=== PATIENT | female | born 1950 | race Two or more races ===

== ENCOUNTER 2025-02-06 13:21 | Inpatient (IN) | payer MEDICARE, MEDICAID ==
[~2025-02-06] VITALS: Ht 157.5 cm; Wt 72.1 kg
--- NOTE | 2025-02-06 13:51 | ECG ---
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
[2025-02-06] MEDS: FUROSEMIDE 40 MG/4 ML VIAL IV ONE (14:27)
--- NOTE | 2025-02-06 14:29 | ED.PDOC ---
History of Present Illness HPI Comments 75F presents to the ER w/ son and prior MHx of HTN, DM and the c/c of SOB. Son reports on the pt complaining of SOB yesterday and brought the pt in today due from the struggling to breathe while sleeping. Pt does have Bilateral LE Edema. Pt is taking blood thinners. Denies any other symptoms at this time. Denies chills, fever, N/V/D, CP. Denies any other associated symptom's, modifiers, or recent injuries or sick contact at this time. Chief Complaint: Shortness of Breath Time Seen by MD: 14:25 Reviewed Notes: Nurses Notes, Medications, Allergies Allergies: Coded Allergies: NO KNOWN ALLERGIES (Unverified , 02/06/25) Information Source: Patient, Relative (Child) Mode of Arrival: Ambulatory Severity: Moderate Timing: Hours Duration: Since onset, Hours Prehospital treatment: None Past Medical History PAST MEDICAL HISTORY: DM, HTN Surgical History: Denies all surgeries Family History Family History: Reviewed,noncontributory to illness, Unknown Social History Smoker: Non-Smoker Alcohol: Denies ETOH Use Drugs: Denies Drug Use Lives In: Home Constitutional: denies: chills, diaphoresis, fatigue, fever, malaise, sweats, weakness, others EENTM: denies: blurred vision, double vision, ear bleeding, ear discharge, ear drainage, ear pain, ear ringing, eye pain, eye redness, hearing loss, mouth pain, mouth swelling, nasal discharge, nose bleeding, nose congestion, nose pain, photophobia, tearing, throat pain, throat swelling, voice changes, others Respiratory: reports: shortness of breath; denies: cough, hemoptysis, orthopnea, SOB at rest, SOB with excertion, stridor, wheezing, others Cardiovascular: reports: edema (bilat LE); denies: chest pain, dizzy spells, diaphoresis, Dyspnea on exertion, irregular heart beat, left arm pain, lightheadedness, palpitations, PND, syncope, others Gastrointestinal: denies: abdomen distended, abdominal pain, blood streaked bowels, constipated, diarrhea, dysphagia, difficulty swallowing, hematemesis, melena, nausea, poor appetite, poor fluid intake, rectal bleeding, rectal pain, vomiting, others Genitourinary: denies: abnormal vagina bleeding, burning, dyspareunia, dysuria, flank pain, frequency, hematuria, incontinence, pain, , vagina discharge, urgency, others Neurological: denies: dizziness, fainting, headache, left sided numbness, left sided weakness, numbness, paresthesia, pre-existing deficit, right sided numbn ess, right sided weakness, seizure, speech problems, tingling, tremors, weakness, others Musculoskeletal: denies: back pain, gout, joint pain, joint swelling, muscle pain, muscle stiffness, neck pain, others Integumetry: denies: bruises, change in color, change in hair/nails, dryness, laceration, lesions, lumps, rash, wounds, others Allergic/Immunocompromised: denies: Difficulty Healing, Frequent Infections, Hives, Itching, others Hematologic/Lymphatic: denies: anemia, blood clots, easy bleeding, easy bruising, swollen glands, others Endocrine: denies: excessive hunger, excessive sweating, excessive thirst, excessive urination, flushing, intolerance to cold, intolerance to heat, unexplained weight gain, unexplained weight loss, others Psychiatric: denies: anxiety, bipolar disorder, depression, hopeless, panic disorder, schizophrenia, sleepless, suicidal, others All Other Systems: Reviewed and Negative Physical Exam General Appearance: Moderate Distress, Normal HEENT: Normal ENT Inspection, Pharynx Normal, TMs Normal Neck: Full Range of Motion, Non-Tender, Normal, Normal Inspection Respiratory: Chest Non-Tender, No Accessory Muscle Use, Respiratory Distress, Other (Coarse breath sound) Cardiovascular: No Edema, No JVD, No Murmur, No Gallop, Normal Peripheral Pulses, Regular Rate/Rhythm Breast Exam: Deferred Gastrointestinal: No Organomegaly, Non Tender, No Pulsatile Mass, Normal Bowel Sounds, Soft Genitalia: Deferred Pelvic: Deferred Rectal: Deferred Extremities: No calf tenderness, Normal capillary refill, Normal inspection, Normal range of motion, Non-tender, No pedal edema Musculoskeletal : Apperance: Normal 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 Was a procedure done?: No EKG EKG : Pulse Rate (adult): 81 [place]: Normal Cardiac Rhythm: NSR Block: None Hypertrophy: None ST: Normal Differential Dx Considerations may include: CHF Electrolyte imbalance X-Ray, Labs, Meds, VS Vital Signs Date Time Temp Pulse Resp B/P (MAP) Pulse Ox O2 Delivery O2 Flow Rate FiO2 02/06/25 15:03 81 18 158/70 (99) 94 02/06/25 14:38 Nasal Cannula* 3 32 02/06/25 14:29 81 02/06/25 14:27 140/69 02/06/25 13:38 81 02/06/25 13:23 97.1 82 22 151/78 85 97.1 Lab Test 02/06/25 15:39 02/06/25 14:09 Range/Units Troponin I High Sensitivity 5 5 </=34 ng/L White Blood Count 8.2 4.4-10.8 10^3/uL Red Blood Count 3.57 L 4.0-5.20 10^6/uL Hemoglobin 9.4 L 12.2-16.2 g/dL Hematocrit 29.8 L 36.0-46.0 % Mean Corpuscular Volume 83.5 80.0-100.0 fL Mean Corpuscular Hemoglobin 26.4 L 28.0-32.0 pg Mean Corpuscular Hemoglobin Concent 31.6 L 32.0-36.0 g/dL Red Cell Distribution Width 17.9 H 11.8-14.3 % Platelet Count 395 140-450 10^3/uL Mean Platelet Volume 6.9 6.9-10.8 fL Neutrophils (%) (Auto) 67.5 37.0-80.0 % Lymphocytes (%) (Auto) 20.4 10.0-50.0 % Monocytes (%) (Auto) 7.6 0.0-12.0 % Eosinophils (%) (Auto) 3.4 0.0-7.0 % Basophils (%) (Auto) 1.1 0.0-2.0 % Neutrophils # (Auto) 5.6 1.6-8.6 10 ^3/uL Lymphocytes # (Auto) 1.7 0.4-5.4 10 ^3/uL Monocytes # (Auto) 0.6 0-1.3 10 ^3/uL Eosinophils # (Auto) 0.3 0-0.8 10 ^3/uL Basophils # (Auto) 0.1 0-0.2 10 ^3/uL Nucleated Red Blood Cells 0.1 % Sodium Level 141 136-145 mmol/L Potassium Level 4.8 3.5-5.1 mmol/L Chloride Level 110 H 98-107 mmol/L Carbon Dioxide Level 22 20-31 mmol/L Anion Gap 9 5-15 Blood Urea Nitrogen 23 9-23 mg/dL Creatinine 1.31 H 0.550-1.02 mg/dL Glomerular Filtration Rate Calc 42 >90 mL/min BUN/Creatinine Ratio 17.6 10.0-20.0 Serum Glucose 113 H 74-106 mg/dL Calcium Level 8.6 L 8.7-10.4 mg/dL Total Bilirubin 0.6 0.2-1.0 mg/dL Aspartate Amino Transferase (AST) 21 13-40 U/L Alanine Aminotransferase (ALT) 18 7-40 U/L Alkaline Phosphatase 140 H 46-116 U/L B-Type Natriuretic Peptide 442.26 0-100 pg/mL Total Protein 7.6 5.7-8.2 g/dL Albumin 4.0 3.2-4.8 g/dL Current Medications Medications (Trade) Dose Ordered Sig/Scarlet Route Start Time Stop Time Status Last Admin Furosemide (Lasix Injection) 40 mg ONCE ONCE IV 02/06/25 14:00 02/06/25 14:01 DC 02/06/25 14:27 Patient alert. Placed on oxygen. Complaining of shortness a breath. Answering questions. BNP elevated. Mild swelling of the extremities. Was given Lasix. Explained to the patient. Continue monitoring. Time of 1ST Reevaluation: 14:55 Reevaluation 1ST: Unchanged Patient Education/Counseling: Diagnosis, Treatment, Prognosis Family Education/Counseling: No Family Present SEPSIS Sepsis Screen Date sepsis recognized/suspect: Feb 06, 2025 Time Sepsis recognized/suspect: 1325 Recent Procedure: No On Antibiotic Therapy: No Respiratory Rate >20: No Heart Rate >90: No Temp<36 C (96.8 F) or >38.3 C: No SBP <90 or MAP <65 mmHG: No New Acute Mental Status Change: No Is the patient on CPAP, BIPAP,: No Physician Orders Electrocardigram (02/06/25 13:49) Chest Portable (02/06/25 13:57) Urinalysis (02/06/25 13:57) Troponin-I Hs (02/06/25 16:57) Vital Signs Date Time Temp Pulse Resp B/P (MAP) Pulse Ox O2 Delivery O2 Flow Rate FiO2 02/06/25 15:03 81 18 158/70 (99) 94 02/06/25 14:38 Nasal Cannula* 3 32 02/06/25 14:29 81 02/06/25 14:27 140/69 02/06/25 13:38 81 02/06/25 13:23 97.1 82 22 151/78 85 97.1 Laboratory Tests Test 02/06/25 14:09 White Blood Count 8.2 10^3/uL (4.4-10.8) Medications Medications Dose Ordered Sig/Csarlet Route Start Time Stop Time Status Last Admin Dose Admin Furosemide 40 mg ONCE ONCE IV 02/06/25 14:00 02/06/25 14:01 DC 02/06/25 14:27 Departure 1 Departure Time of Disposition: 17:21 Impression: Primary Impression: CHF (congestive heart failure) Qualified Codes: I50.43 - Acute on chronic combined systolic (congestive) and diastolic (congestive) heart failure Additional Impression: Hypertensive urgency Disposition: ADMITTED INPATIENT Admit to: Med Surg Condition: Guarded Critical Care Note Critical Care Time?: Yes (90 min-critical care time only) Stability Stability form required: No Heart Score Heart Score: Heart Score Response (Comments) Value History Slightly Suspicious 0 EKG Normal 0 Age >65 2 Risk Factors >3 or Hx ASHD 2 Troponin Normal limit 0 Total 4 I personally scribed for RENEE ESPARZA MD ([email or web address]) on 02/06/25 at 14:28. Electronically submitted by Manny Carmen ([email or web address]). RENEE ESPARZA MD Feb 06, 2025 14:28
[2025-02-06 14:37] LABS: Hematocrit 29.8 % (36.0-46.0); Hemoglobin 9.4 g/dL (12.2-16.2); Mean Corpuscular Hemoglobin 26.4 pg (28.0-32.0); Mean Corpuscular Volume 83.5 fL (80.0-100.0); Nucleated Red Blood Cells % 0.1 %
--- NOTE | 2025-02-06 14:38 | DVH ---
INDICATION: sob TECHNIQUE: Frontal view of the chest. COMPARISON: None FINDINGS: Cardiomegaly. There is no evidence of pleural disease. The lungs are clear. The bony structures of the chest are intact without fracture. IMPRESSION: 1. Cardiomegaly with CHF
[2025-02-06 14:45] LABS: Alanine Aminotransferase 18 U/L (7-40); Albumin 4.0 g/dL (3.2-4.8); Alkaline Phosphatase 140 U/L (46-116); Anion Gap 9 (5-15); BUN/Creatinine Ratio 17.6 (10.0-20.0); Blood Urea Nitrogen 23 mg/dL (9-23); Calcium 8.6 mg/dL (8.7-10.4); Carbon Dioxide 22 mmol/L (20-31); Chloride 110 mmol/L (98-107); Glucose 113 mg/dL (74-106); Potassium 4.8 mmol/L (3.5-5.1); Sodium 141 mmol/L (136-145); Total Protein 7.6 g/dL (5.7-8.2)
[2025-02-06 14:46] LABS: Bilirubin, Total 0.6 mg/dL (0.2-1.0)
[2025-02-06 19:30] VITALS: RESP 19; O2SAT 96
[2025-02-06] MEDS ORDERED: ONDANSETRON HCL 4 MG/2 ML VIAL IV PRN (19:45)
[2025-02-06] MEDS ORDERED: ALBUTEROL SULF 2.5 MG/0.5ML(0.5%) NEB SOLN NEB PRN (19:45)
[2025-02-06] MEDS ORDERED: MORPHINE SULFATE INJ 2 MG/ml SYRG IV PRN (19:45)
[2025-02-06] MEDS ORDERED: NITROGLYCERIN 0.4 MG SL TAB SL PRN (19:45)
[2025-02-06] MEDS ORDERED: ACETAMINOPHEN 325 MG TAB PO PRN (19:45)
[2025-02-06 19:56] VITALS: BP 165/74; PULSE 84; RESP 18; TEMP 98.1; O2SAT 96
[2025-02-06 20:36] LABS: Urine Protein, UAD 1+ (Negative)
[2025-02-06 21:00] VITALS: BP 154/91; PULSE 86; RESP 16; TEMP 97.6; O2SAT 95
[2025-02-06] MEDS ORDERED: AMLO1TAB23 PO (22:23)
[2025-02-06] MEDS ORDERED: FAMO20TA10 PO (22:23)
[2025-02-06] MEDS ORDERED: INSUINJ37 SC (22:23)
[2025-02-06] MEDS ORDERED: SPIR25TA8 PO (22:24)
[2025-02-06] MEDS ORDERED: SEMA2INJ3 SC (22:24)
[2025-02-06] MEDS ORDERED: METO-289 PO (22:28)
[2025-02-06] MEDS ORDERED: SACU1TAB PO (22:28)
[2025-02-06] MEDS ORDERED: CLOP75TA28 PO (22:28)
[2025-02-06] MEDS ORDERED: ASPI1TAB20 PO (22:28)
[2025-02-06] MEDS ORDERED: ATOR-507 PO (22:28)
[2025-02-06] MEDS ORDERED: EMPA1TAB3 PO (22:28)
[2025-02-06] MEDS ORDERED: METF-370 PO (22:28)
[2025-02-06 22:29] VITALS: PULSE 86; RESP 16; O2SAT 95
[2025-02-07] VITALS (10 sets, daily range): BP systolic 136–167; BP diastolic 72–85; PULSE 77–87; RESP 16–18; TEMP 97.4–98.3; O2SAT 94–97
--- NOTE | 2025-02-07 04:42 | DVHHP2 ---
History of Present Illness Reason for Visit: Shortness for breath History of Present Illness 75-year-old female presents for evaluation of shortness for breath. Patient reports a two day history of worsening shortness for breath with associated chest pressure, fatigue and lower extremity swelling. Past Medical History Dyslipidemia, hypertension, diabetes mellitus Past Surgical History None Family History Noncontributory Smoke: No ALCOHOL: none Drugs: None Lives: with Family Review of Systems Review of Systems Review of systems are currently negative otherwise addressed in HPI. Allergies: Coded Allergies: NO KNOWN ALLERGIES (Unverified , 02/06/25) Medications Current Medications Medications Dose Ordered Sig/Scarlet Route Start Time Stop Time Status Last Admin Dose Admin Ondansetron HCl 4 mg Q4HP PRN IV 02/06/25 19:45 Enoxaparin Sodium 30 mg DAILY SC 02/07/25 10:00 Acetaminophen 650 mg Q6HP PRN PO 02/06/25 19:45 Nitroglycerin 0.4 mg Q5MINP PRN SL 02/06/25 19:45 Morphine Sulfate 2 mg Q30M PRN IV 02/06/25 19:45 Albuterol 2.5 mg Q6HPRN PRN NEB 02/06/25 19:45 Exam Vital Signs Vital Signs Date Time Temp Pulse Resp B/P (MAP) Pulse Ox O2 Delivery O2 Flow Rate FiO2 02/07/25 01:05 98.3 86 16 144/75 (98) 97 98.3 02/06/25 22:29 Room Air* 0 21 Exam Gen: 75-year-old female in mild distress Skin: Warm, dry, normal color and texture, no rash. HEENT: Normocephalic atraumatic, mucous membranes moist and pink. Neck: Cervical and supraclavicular nodes normal without enlargement, trachea is midline, thyroid gland is normal without masses. Pulmonary: Clear to auscultation and percussion bilaterally. Cardiac: Regular rate and rhythm. No murmur Abdomen: Soft, nontender, nondistended, bowel sounds present all 4 quadrants, no guarding, no rigidity, no organomegaly. Extremities: No cyanosis, clubbing, plus two bilateral pedal edema Neuro: Cranial nerves II through XII grossly intact, normal affect and speech, no focal motor deficits. Labs/Xrays ORDERING PHYSICIAN: RENEE ESPARZA MD PROCEDURE(s): CXRP - CHEST PORTABLE REASON: sob ORDER NUMBER(s): [id number], ACCESSION NUMBER(s): [id number] INDICATION: sob TECHNIQUE: Frontal view of the chest. COMPARISON: None FINDINGS: Cardiomegaly. There is no evidence of pleural disease. The lungs are clear. The bony structures of the chest are intact without fracture. IMPRESSION: 1. Cardiomegaly with CHF Labs Test 02/06/25 20:10 02/06/25 15:39 02/06/25 14:09 Range/Units Urine Color Colorless Yellow Urine Clarity Turbid H Clear Urine pH 5.5 5.0-9.0 Urine Specific [place] 1.007 1.001-1.035 Urine Protein 1+ H Negative Urine Ketones Negative Negative Urine Blood Negative Negative /uL Urine Nitrite Negative Negative Urine Bilirubin Negative Negative Urine Urobilinogen Normal Negative mg/dL Urine Leukocyte Esterase Trace Negative /uL Urine RBC 2 0 - 4 /hpf Urine Microscopic WBC 28 H 0-5 /HPF Urine Squamous Epithelial Cells Few <5 /hpf Urine Bacteria Few H None Seen /hpf Urine Glucose Normal Normal mg/dL Troponin I High Sensitivity 5 </=34 ng/L White Blood Count 8.2 4.4-10.8 10^3/uL Red Blood Count 3.57 L 4.0-5.20 10^6/uL Hemoglobin 9.4 L 12.2-16.2 g/dL Hematocrit 29.8 L 36.0-46.0 % Mean Corpuscular Volume 83.5 80.0-100.0 fL Mean Corpuscular Hemoglobin 26.4 L 28.0-32.0 pg Mean Corpuscular Hemoglobin Concent 31.6 L 32.0-36.0 g/dL Red Cell Distribution Width 17.9 H 11.8-14.3 % Platelet Count 395 140-450 10^3/uL Mean Platelet Volume 6.9 6.9-10.8 fL Neutrophils (%) (Auto) 67.5 37.0-80.0 % Lymphocytes (%) (Auto) 20.4 10.0-50.0 % Monocytes (%) (Auto) 7.6 0.0-12.0 % Eosinophils (%) (Auto) 3.4 0.0-7.0 % Basophils (%) (Auto) 1.1 0.0-2.0 % Neutrophils # (Auto) 5.6 1.6-8.6 10 ^3/uL Lymphocytes # (Auto) 1.7 0.4-5.4 10 ^3/uL Monocytes # (Auto) 0.6 0-1.3 10 ^3/uL Eosinophils # (Auto) 0.3 0-0.8 10 ^3/uL Basophils # (Auto) 0.1 0-0.2 10 ^3/uL Nucleated Red Blood Cells 0.1 % Sodium Level 141 136-145 mmol/L Potassium Level 4.8 3.5-5.1 mmol/L Chloride Level 110 H 98-107 mmol/L Carbon Dioxide Level 22 20-31 mmol/L Anion Gap 9 5-15 Blood Urea Nitrogen 23 9-23 mg/dL Creatinine 1.31 H 0.550-1.02 mg/dL Glomerular Filtration Rate Calc 42 >90 mL/min BUN/Creatinine Ratio 17.6 10.0-20.0 Serum Glucose 113 H 74-106 mg/dL Calcium Level 8.6 L 8.7-10.4 mg/dL Total Bilirubin 0.6 0.2-1.0 mg/dL Aspartate Amino Transferase (AST) 21 13-40 U/L Alanine Aminotransferase (ALT) 18 7-40 U/L Alkaline Phosphatase 140 H 46-116 U/L B-Type Natriuretic Peptide 442.26 0-100 pg/mL Total Protein 7.6 5.7-8.2 g/dL Albumin 4.0 3.2-4.8 g/dL SEPSIS Sepsis Screen Date sepsis recognized/suspect: Feb 06, 2025 Time Sepsis recognized/suspect: 1325 Recent Procedure: No On Antibiotic Therapy: No Respiratory Rate >20: No Heart Rate >90: No Temp<36 C (96.8 F) or >38.3 C: No SBP <90 or MAP <65 mmHG: No New Acute Mental Status Change: No Is the patient on CPAP, BIPAP,: No Physician Orders * Cardiology Consult (02/07/25 03:28) Empagliflozin (Jardiance) (02/07/25 10:00) Sacubitril-Valsartan (Entresto 24-26 Mg (02/07/25 10:00) Metoprolol Xl Succinate (Toprol Xl) (02/07/25 10:00) Clopidogrel Bisulfate (Plavix) (02/07/25 10:00) Glucose Blood (Accu-Chek Comfort Curve T (02/07/25 07:00) Mild Sliding Scale (02/07/25 07:00) Dextrose 50% Syringe (02/07/25 04:45) Furosemide Injection (Lasix Injection) (02/07/25 10:00) Vital Signs Date Time Temp Pulse Resp B/P (MAP) Pulse Ox O2 Delivery O2 Flow Rate FiO2 02/07/25 01:05 98.3 86 16 144/75 (98) 97 98.3 02/06/25 22:29 86 16 95 Room Air* 0 21 02/06/25 21:00 98.1 79 18 144/67 (92) 96 98.1 02/06/25 21:00 97.6 86 16 154/91 (112) 95 97.6 Assessment/Plan Assessment/Plan Assessment Acute on chronic diastolic congestive heart failure Acute kidney injury Accelerated Hypertension Diabetes mellitus Plan Admit the patient to telemetry to the hospitalist Cardiology consultation IV Lasix Resume home medications Continue treatment per orders. Plan discussed with: Patient My Orders Orders - RACHELLE HERRERA Procedure Category Date Status Time Basic Metabolic Panel LAB 02/07/25 Logged 04:00 Admit ADMIT 02/06/25 Transmitted 19:43 Ondansetron Hcl PHA 02/06/25 In Process (Zofran) 19:45 Cardiac DIET 02/07/25 Transmitted Diet-2gna,Lofat,Lochol Breakfast Echo 2d Mode Cardiac US 02/06/25 Logged DOP 19:43 Condition: Stable LEXIE 02/06/25 In Process 19:43 Enoxaparin Sodium PHA 02/07/25 In Process (Lovenox) 10:00 Acetaminophen Tablet PHA 02/06/25 In Process (Tylenol Tablet) 19:45 Bedrest With Bathroom LEXIE 02/06/25 In Process Privileg 19:43 Nitroglycerin PHA 02/06/25 In Process Sublingual (Ntrostat 19:45 Morphine Sulfate PHA 02/06/25 In Process Injection 19:45 Stat Ekg For Chest LEXIE 02/06/25 In Process Pain 19:43 Notify Of Changes LEXIE 02/06/25 In Process From Base 19:43 [employer] Manager For LEXIE 02/06/25 In Process 24 Hours 19:43 Emergency Dysrhythmia LEXIE 02/06/25 In Process Protocol 19:43 Rhythm Strips Once [facility] 02/06/25 In Process Every Shift 19:43 Oxygen By Nasal RT 02/06/25 Transmitted Cannula 19:43 Albuterol Medneb PHA 02/06/25 In Process (Ventolin Medneb) 19:45 Empagliflozin PHA 02/07/25 Verified (Jardiance) 10:00 Sacubitril-Valsartan PHA 02/07/25 Verified (Entresto 24-26 Mg 10:00 Metoprolol Xl PHA 02/07/25 Verified Succinate (Toprol Xl) 10:00 Clopidogrel Bisulfate PHA 02/07/25 Verified (Plavix) 10:00 Glucose Blood PHA 02/07/25 Verified (Accu-Chek Comfort 07:00 Mild Sliding Scale PHA 02/07/25 Verified 07:00 Dextrose 50% Syringe PHA 02/07/25 Verified 04:45 Furosemide Injection PHA 02/07/25 Verified (Lasix Injection) 10:00 Date of Service: Feb 06, 2025 Billing Provider: RACHELLE HERRERA Common Visit Codes: [id number] INP/OBS CARE (HIGH) RACHELLE HERRERA Feb 07, 2025 04:42
[2025-02-07] MEDS ORDERED: DEXTROSE (50%) 50ML SYRG IV PRN (04:45)
[2025-02-07] MEDS: ACCU-CHEK COMFORT CURVE STRIP VI SCH (06:02)
[2025-02-07] MEDS: InsuLIN REG 1unit/0.01ml Soln (100units/ml) SC SCH (06:04)
[2025-02-07 07:16] LABS: Potassium 4.5 mmol/L (3.5-5.1); Sodium 143 mmol/L (136-145)
[2025-02-07 07:17] LABS: Anion Gap 9 (5-15); Carbon Dioxide 25 mmol/L (20-31)
[2025-02-07 07:18] LABS: Calcium 8.7 mg/dL (8.7-10.4)
[2025-02-07 07:22] LABS: BUN/Creatinine Ratio 14.0 (10.0-20.0); Blood Urea Nitrogen 19 mg/dL (9-23)
[2025-02-07 07:23] LABS: Chloride 109 mmol/L (98-107); Glucose 141 mg/dL (74-106)
[2025-02-07 09:40] LABS: Triglycerides 143 mg/dL (< 150)
[2025-02-07] MEDS: SACUBITRIL-VALSARTAN 24mg/26mg TAB PO SCH (09:40)
[2025-02-07] MEDS: CLOPIDOGREL BISULFATE 75 MG TAB PO SCH (09:41)
[2025-02-07] MEDS: METOPROLOL SUCCINATE XL 50 MG TAB PO SCH (09:41)
[2025-02-07] MEDS: EMPAGLIFLOZIN 10 MG TAB PO SCH (09:41)
[2025-02-07 09:42] LABS: Cholesterol 116 mg/dL (< 200)
[2025-02-07] MEDS: FUROSEMIDE 20 MG/2 ML VIAL IV SCH (09:42)
[2025-02-07] MEDS: ENOXAPARIN SOD 30 MG/0.3 ML SYRINGE SC SCH (09:43)
[2025-02-07 09:52] LABS: HDL Cholesterol 35 mg/dL (40-59)
--- NOTE | 2025-02-07 10:47 | DVHINCON2 ---
Date Seen: Feb 07, 2025 Referring Physician LINDA Rutherford Reason for Consultation CHF History of Present Illness This is a pleasant Arabic-speaking mostly 75-year-old female who presented to the emergency room with a chief complaint of shortness of breath for two days. The patient complains of progressive shortness of breath associated with a nonproductive cough and RAMIREZ. Denies PND, lower extremity edema, chest pain, palpitations, dizziness, or syncopal events. She underwent a 12 lead electrocardiogram revealing a normal sinus rhythm. Serial troponin levels are negative. Follows up in the outpatient setting with the primary dry heat room attendant Dr. Real with latest appointment completed last week and a follow-up established in six months. Per son, latest Cardiolite stress test was unremarkable a year ago. She also follows up in the outpatient setting with vascular surgeon Dr. Junior undergoing about five lower extremity peripheral angiograms with balloon angioplasty, denied stent placement. Significant medical history includes congestive heart failure, severe lower extremity peripheral arterial disease undergoing multiple PTAs and on ASA/Plavix/Atorvastatin, hypertension, dyslipidemia, insulin-dependent diabetes mellitus, and obesity. Past Medical History Past medical history reviewed. No other significant than mentioned above. Past Surgical History Multiple bilateral lower extremity peripheral angiograms Malignant neck tumor resection Hernia repair Bilateral eyes Cholecystectomy Family History: Patient reports no known family medical history. Family History Family history reviewed. Social History Denies the use of illicit drugs, alcohol, or tobacco use. Allergies: Coded Allergies: NO KNOWN ALLERGIES (Unverified , 02/06/25) Home Meds Reported Medications Aspirin (Aspir-81) 81 Mg Tab, 1 TAB PO DAILY, #30 TAB 5 Refills 02/06/25 Clopidogrel Bisulfate (Plavix) 75 Mg Tab, 1 TAB PO DAILY, #90 TAB 1 Refill 02/06/25 Atorvastatin Calcium (Lipitor) 40 Mg Tab, 1 TAB PO DAILY, #30 TAB 5 Refills 02/06/25 Empagliflozin (Jardiance) 25 Mg Tab, 25 MG PO, TAB 02/06/25 Metoprolol Succinate (Metoprolol Succinate Er) 50 Mg Tab, 1 TAB PO DAILY, #30 TAB 5 Refills 02/06/25 Metformin Hydrochloride (Metformin Hcl) 500 Mg Tab, 1 TAB PO BID, #60 TAB 3 Refills 02/06/25 Sacubitril-Valsartan (Entresto 24-26 mg) 1 Tab Tab, 1 TAB PO, TAB 02/06/25 Spironolactone (Spironolactone) 25 Mg Tab, 1 TAB PO DAILY, #90 TAB 1 Refill 02/06/25 Semaglutide (Ozempic) 2 Mg/3 Ml Inj, 0.5 MG SC, INJ 02/06/25 Amlodipine Besylate (Amlodipine Besylate) 10 Mg Tab, 1 TAB PO DAILY, #30 TAB 5 Refills 02/06/25 Famotidine (PEPCID TABLET) 20 Mg Tb, 1 TAB PO BID, #60 TAB 5 Refills 02/06/25 Insulin Glargine (Lantus Solostar) 100 Unit/Ml Inj, 100 UNIT SC, INJ 02/06/25 Home Meds Home medications reviewed. Current Medications Current Medications Medications (Trade) Dose Ordered Sig/Scarlet Route PRN Reason Start Time Stop Time Status Last Admin Ondansetron HCl (Zofran) 4 mg Q4HP PRN IV NAUSEA / VOMITING 02/06/25 19:45 Enoxaparin Sodium (Lovenox) 30 mg DAILY SC 02/07/25 10:00 02/07/25 09:43 Acetaminophen (Tylenol Tablet) 650 mg Q6HP PRN PO PAIN SCALE 1-3 OR TEMP>100.4 02/06/25 19:45 Nitroglycerin (Ntrostat Sublingual) 0.4 mg Q5MINP PRN SL FOR CHEST PAIN 02/06/25 19:45 Morphine Sulfate 2 mg Q30M PRN IV FOR CHEST PAIN 02/06/25 19:45 Albuterol (Ventolin Medneb) 2.5 mg Q6HPRN PRN NEB SHORTNESS OF BREATH 02/06/25 19:45 Empaglifozin (Jardiance) 10 mg DAILY PO 02/07/25 10:00 02/07/25 09:41 Sacubitril/ Valsartan (Entresto 24-26 Mg tab) 1 tab BID PO 02/07/25 10:00 02/07/25 09:40 Metoprolol Succinate (Toprol Xl) 25 mg DAILY PO 02/07/25 10:00 02/07/25 09:41 Clopidogrel Bisulfate (Plavix) 75 mg DAILY PO 02/07/25 10:00 02/07/25 09:41 Diagnostic Test (Pha) (Accu-Chek Comfort Curve T) 1 strip ACHS 02/07/25 07:00 02/07/25 06:02 Insulin Human Regular (InsuLIN R) ACHS SC 02/07/25 07:00 02/07/25 06:04 Dextrose 50 ml UD PRN IV Blood Sugar LESS THAN 60 02/07/25 04:45 Furosemide (Lasix Injection) 20 mg DAILY IV 02/07/25 10:00 02/07/25 09:42 Atorvastatin Calcium (Lipitor) 10 mg HS PO 02/07/25 22:00 Review of Systems Constitutional: No symptom reported Ears, Nose, & Throat: No symptom reported Eyes: No symptom reported Neurological: No symptoms reported Pulmonary/Respiratory: SOB, RAMIREZ, nonproductive cough Cardiovascular: No symptom reported Gastrointestinal: No symptom reported Genitourinary: No symptom reported Musculoskeletal: No symptom reported Skin: No symptom reported Psychiatric: No symptom reported Endocrine: No symptom reported Hemotologic/Lymphatic: No symptom reported Vital Signs Vital Signs Date Time Temp Pulse Resp B/P (MAP) Pulse Ox O2 Delivery O2 Flow Rate FiO2 02/07/25 09:42 153/83 02/07/25 09:41 85 02/07/25 06:43 97 Nasal Cannula* 3 32 02/07/25 05:00 97.9 16 97.9 Physical Exam General Appearance: Cooperative. Well developed. Obese. In no acute distress Head Exam: Normal inspection Neck Exam: Normal inspection. Non-tender. Normal alignment Pulmonary/Respiratory: Chest non-tender. Bibasilar crackles to bilateral breath sounds Cardiovascular/Chest: Regular rate and rhythm. S1, S2. NSR. No murmurs. No JVD. Peripheral Pulses: 2+ Radial (R). 2+ Radial (L). 2+ Pedal (R). 2+ Pedal (L) Abdominal Exam: Normal bowel sounds. Soft. Nontender. No hepatospenomegaly. No masses Ankle Exam: Negative ankle edema Lower extremities: Negative lower extremity edema Neuro/Mental Status: A&O x4. Coherent Thoughts/Psych: Normal thought pattern. Appropriate mood and affect. Good judgement and insight Appearance: In no acute distress Skin Exam: Normal inspection. Normal color. Warm. Dry Labs/Diagnostic Data Labs Test 02/07/25 05:22 02/07/25 05:21 02/06/25 20:10 02/06/25 15:39 Range/Units Sodium Level 143 136-145 mmol/L Potassium Level 4.5 3.5-5.1 mmol/L Chloride Level 109 H 98-107 mmol/L Carbon Dioxide Level 25 20-31 mmol/L Anion Gap 9 5-15 Blood Urea Nitrogen 19 9-23 mg/dL Creatinine 1.36 H 0.550-1.02 mg/dL Glomerular Filtration Rate Calc 40 >90 mL/min BUN/Creatinine Ratio 14.0 10.0-20.0 Serum Glucose 141 H 74-106 mg/dL Calcium Level 8.7 8.7-10.4 mg/dL Triglycerides Level 143 < 150 mg/dL Cholesterol Level 116 < 200 mg/dL LDL Cholesterol 60 < 100 mg/dL HDL Cholesterol 35 L 40-59 mg/dL Thyroid Stimulating Hormone (TSH) 1.85 0.55-4.78 uIU/mL POC Glucose 147 H 70-106 mg/dl Urine Color Colorless Yellow Urine Clarity Turbid H Clear Urine pH 5.5 5.0-9.0 Urine Specific [place] 1.007 1.001-1.035 Urine Protein 1+ H Negative Urine Ketones Negative Negative Urine Blood Negative Negative /uL Urine Nitrite Negative Negative Urine Bilirubin Negative Negative Urine Urobilinogen Normal Negative mg/dL Urine Leukocyte Esterase Trace Negative /uL Urine RBC 2 0 - 4 /hpf Urine Microscopic WBC 28 H 0-5 /HPF Urine Squamous Epithelial Cells Few <5 /hpf Urine Bacteria Few H None Seen /hpf Urine Glucose Normal Normal mg/dL Troponin I High Sensitivity 5 </=34 ng/L Test 02/06/25 14:09 Range/Units White Blood Count 8.2 4.4-10.8 10^3/uL Red Blood Count 3.57 L 4.0-5.20 10^6/uL Hemoglobin 9.4 L 12.2-16.2 g/dL Hematocrit 29.8 L 36.0-46.0 % Mean Corpuscular Volume 83.5 80.0-100.0 fL Mean Corpuscular Hemoglobin 26.4 L 28.0-32.0 pg Mean Corpuscular Hemoglobin Concent 31.6 L 32.0-36.0 g/dL Red Cell Distribution Width 17.9 H 11.8-14.3 % Platelet Count 395 140-450 10^3/uL Mean Platelet Volume 6.9 6.9-10.8 fL Neutrophils (%) (Auto) 67.5 37.0-80.0 % Lymphocytes (%) (Auto) 20.4 10.0-50.0 % Monocytes (%) (Auto) 7.6 0.0-12.0 % Eosinophils (%) (Auto) 3.4 0.0-7.0 % Basophils (%) (Auto) 1.1 0.0-2.0 % Neutrophils # (Auto) 5.6 1.6-8.6 10 ^3/uL Lymphocytes # (Auto) 1.7 0.4-5.4 10 ^3/uL Monocytes # (Auto) 0.6 0-1.3 10 ^3/uL Eosinophils # (Auto) 0.3 0-0.8 10 ^3/uL Basophils # (Auto) 0.1 0-0.2 10 ^3/uL Nucleated Red Blood Cells 0.1 % Total Bilirubin 0.6 0.2-1.0 mg/dL Aspartate Amino Transferase (AST) 21 13-40 U/L Alanine Aminotransferase (ALT) 18 7-40 U/L Alkaline Phosphatase 140 H 46-116 U/L B-Type Natriuretic Peptide 442.26 0-100 pg/mL Total Protein 7.6 5.7-8.2 g/dL Albumin 4.0 3.2-4.8 g/dL Assessment Acute on chronic decompensated HFpEF, NYHA Class III Severe peripheral arterial disease s/p multiple PTAs (on ASA/Plavix/Atorvastat in) Hypertension Dyslipidemia Insulin-dependent diabetes mellitus Chronic kidney disease stage 3 Obesity Plan/Recommendation (Dr. Cardozo) * Transthoracic echocardiogram pending * 12 lead electrocardiogram, normal sinus rhythm * Serial troponin levels, negative * BNP level 400s Plan: We will continue further cardiac evaluation with a transthoracic echocardiogram to rule out structural heart disease. In the meantime, continue preload and afterload reduction, strict I&Os, daily weight, fluid restriction, and 2 g sodium diet. Continue home medications which include GDMT for CHF. Initiate dual-antiplatelet therapy and lipid lowering agent given severe PAD. DVT/VTE prophylaxis. Further orders per clinical course. Thank you for allowing us to participate in this patient's care. Please call if you have any questions or concerns. This medical document was created using an electronic medical record system with voice recognition software and computerized dictation system. Although this document has been carefully reviewed, there might still be some phonetic and typographical errors. Occasional wrong-word or ``sound-alike substitutions may have occurred due to the inherent limitations of voice recognition software. These areas are purely typographical due to imperfections of the software programs and do not reflect any compromise in the patient's medical care. Please read the chart carefully and recognize, using context, where these substitutions have occurred. Plan discussed with: Patient, Other NYHA Physical activity limitations: Class3(Marked) ordinary (activity causes symtoms) Date of Service: Feb 07, 2025 Billing Provider: DELONTE HUTCHINSON Cardiology Common Codes: [id number] INP/OBS CARE (High) DELONTE HUTCHINSON Feb 07, 2025 10:47
[2025-02-07] MEDS: SPIRONOLACTONE 25 MG TAB PO ONE (11:47)
--- NOTE | 2025-02-07 12:23 | DVHPN2 ---
Progress Note Date Seen: Feb 07, 2025 Medical Necessity Reason Pt with a Central, PICC or Fol: No Subjective Patient reports: No new complaints Review of Systems: HEENT:Normal, CVS:Normal, RESPIRATORY:Normal, GI:Normal, :Normal, MSK:Normal, NEURO:Normal Objective vital signs Vital Sign Date Time Temp Pulse Resp B/P (MAP) Pulse Ox O2 Delivery O2 Flow Rate FiO2 02/07/25 09:42 153/83 02/07/25 09:41 85 02/07/25 09:00 97.8 18 94 97.8 02/07/25 06:43 Nasal Cannula* 3 32 Total Intake and Output 02/06/25 02/06/25 02/07/25 15:00 23:00 07:00 Intake Total 200 ml Balance 200 ml medications Current Medications Medications Dose Ordered Sig/Scarlet Route Start Time Stop Time Status Last Admin Dose Admin Ondansetron HCl 4 mg Q4HP PRN IV 02/06/25 19:45 Enoxaparin Sodium 30 mg DAILY SC 02/07/25 10:00 02/07/25 09:43 30 MG Acetaminophen 650 mg Q6HP PRN PO 02/06/25 19:45 Nitroglycerin 0.4 mg Q5MINP PRN SL 02/06/25 19:45 Morphine Sulfate 2 mg Q30M PRN IV 02/06/25 19:45 Albuterol 2.5 mg Q6HPRN PRN NEB 02/06/25 19:45 Empaglifozin 10 mg DAILY PO 02/07/25 10:00 02/07/25 09:41 10 MG Sacubitril/ Valsartan 1 tab BID PO 02/07/25 10:00 02/07/25 09:40 1 TAB Clopidogrel Bisulfate 75 mg DAILY PO 02/07/25 10:00 02/07/25 09:41 75 MG Diagnostic Test (Pha) 1 strip ACHS 02/07/25 07:00 02/07/25 11:39 1 STRIP Insulin Human Regular ACHS SC 02/07/25 07:00 02/07/25 11:51 2 UNITS Dextrose 50 ml UD PRN IV 02/07/25 04:45 Furosemide 20 mg DAILY IV 02/07/25 10:00 02/07/25 09:42 20 MG Atorvastatin Calcium 40 mg HS PO 02/07/25 22:00 Metoprolol Succinate 50 mg DAILY PO 02/08/25 10:00 Aspirin 81 mg DAILY PO 02/08/25 10:00 Spironolactone 25 mg DAILY PO 02/08/25 10:00 Examination: GENERAL:Normal, HEENT:Normal, NECK:Normal, LUNGS:Normal, LUNGS:Abnormal (on oxygen), CVS:Normal, ABDOMEN:Normal, MSK:Normal, MSK:Abnormal (edema+), SKIN:Normal, NEURO:Normal, :Normal laboratory and microbiology Laboratory Tests 02/07/25 05:22 02/06/25 14:09 Test 02/07/25 05:22 Range/Units Serum Glucose 141 H 74-106 mg/dL Problem List/Assessment/Plan Problem List/Assessment/Plan #1 acute resp failure: cont oxygen #2 acute on chronic systolic/diastolic heart failure: lasix iv #3 dm: ssi #4 htn #5 pvd s/p angioplasty #6 ckd stage 3 advance care planning- full code- time spent 18 mins Plan discussed with: Patient My Orders My Orders Orders - RACHELLE COHEN MD Procedure Category Date Status Time Pt Request For Service PT 02/07/25 Logged 12:17 Basic Metabolic Panel LAB 02/08/25 Verified 06:00 Complete Blood Count LAB 02/08/25 Verified 06:00 Hemoglobin A1c LAB 02/08/25 Verified 06:00 Chest Portable XY 02/08/25 Logged 06:00 Kidney US 02/07/25 Logged 12:19 Date of Service: Feb 07, 2025 Billing Provider: RACHELLE COHEN MD Common Visit Codes: [id number] INP/OBS CARE(HIGH) Secondary Visit Codes: [id number] CARE PLAN 30 MINUTES RACHELLE COHEN MD Feb 07, 2025 12:23
--- NOTE | 2025-02-07 13:13 | DVH ---
INDICATION: renal failure TECHNIQUE: Multiple real-time sonographic images of the kidneys and bladder were obtained. COMPARISON: None FINDINGS: The right kidney measures 8.1 cm in length, which is normal in size. There is normal echoge nicity of the right kidney. No hydronephrosis. The left kidney measures 8.2 cm in length, which is normal in size. There is normal echogenicity of t he left kidney. No hydronephrosis. No large intraluminal mass is seen in the bladder. At the time of the examination, the bladder volume measures 171 cc. There are bilateral pleural effusions. IMPRESSION: Normal sonographic appearance of the kidneys. No hydronephrosis. Bilateral pleural effusions.
[2025-02-07] MEDS: ATORVASTATIN 20 MG TAB PO SCH (21:41)
[2025-02-07] MEDS ORDERED: ATORVASTATIN 20 MG TAB PO SCH (22:00)
--- NOTE | 2025-02-07 22:07 | DVHSR ---
APPROVED REPORT EXAM: Two-dimensional and M-mode echocardiogram with Doppler and color Doppler. Blood Pressure: 147/72 mmHg INDICATION ef RISK FACTORS Height: 5'2, Weight: 163 DIMENSIONS LVDd4.3 (3.8-5.7cm)LA (2D)4.5 (1.9-4.0cm)Aortic Root2.6 (2.0-3.7cm) LVDs3.2 (2.5-4.0cm)LA (MM) (1.9-4.0cm)Aortic Cusp Exc0.9 (1.5-2.0cm) EF (%) 51.8 (55-70%)Rt. Atrium3.4 (1.9-4.0cm)Asc. Aorta2.8 cm IVSd0.9 (0.7-1.1cm)RV (D)3.5 (1.8-2.4cm) PWd1.0 (0.7-1.1cm) Mitral Valve MitralMitral Stenosis E wave1.23m/sMV Mean GR.4mmHg A wave1.10m/sMV Peak GR.76mmHg E/A ratio1.12D MVAcm2 DECEL [id number] 1/2 Timems Aortic Valve Aortic ValveAortic Stenosis V11.21m/John Mean GR.10mmHg V21.99m/John Peak GR.16mmHg LVOT Diameter1.9 (1.8-2.4cm)Doppler AVA1.72cm2 Pulmonic Valve V21.23m/s Tricuspid Valve TR Velocity3.08m/s [id number] Other Information Technically limited study due to body habitus. Conclusion MILD LVH AND MILD LV DIASTOLIC DYSFUNCTION LV EF IS 60% MILD AORTIC STENOSIS CALCIFIED AORTIC LEAFLETS AORTIC VALVE AREA IS 1.72 CM SQUARE SLIGHTLY DILATED LA MODERATELY DILATED RV MODERATE DEGREE PULMONARY HYPERTENSION RVSP IS 51 MM OF HG AND IS HIGH
--- NOTE | 2025-02-07 23:29 | DVHINCON2 ---
Date Seen: Feb 07, 2025 Referring Physician LINDA Rutherford Reason for Consultation CHF History of Present Illness This is a pleasant Persian-speaking mostly 75-year-old female with a past medical history of congestive heart failure, severe lower extremity peripheral arterial disease undergoing multiple PTAs and on ASA/Plavix/Atorvastatin, hypertension, dyslipidemia, insulin-dependent diabetes mellitus, and obesity who presented to the emergency room with a complaint of shortness of breath for two days. The patient complains of progressive shortness of breath associated with a nonproductive cough and RAMIREZ. Denies PND, lower extremity edema, chest pain, palpitations, dizziness, or syncopal events. She underwent a 12 lead electrocardiogram revealing a normal sinus rhythm. Serial troponin levels are negative. Chest x-ray showed cardiomegaly with CHF. Follows up in the outpatient setting with the primary blood bank specialist Dr. Real with latest appointment completed last week and a follow-up established in six months. Per son, latest Cardiolite stress test was unremarkable a year ago. e also follows up in the outpatient setting with vascular surgeon Dr. Junior undergoing about five lower extremity peripheral angiograms with balloon angioplasty, denied stent placement. Patient was admitted to the hospital. I am asked to consult on this patient. Past Medical History Past medical history reviewed. No other significant than mentioned above. Past Surgical History Multiple bilateral lower extremity peripheral angiograms Malignant neck tumor resection Hernia repair Bilateral eyes Cholecystectomy Family History: Patient reports no known family medical history. Allergies: Coded Allergies: NO KNOWN ALLERGIES (Unverified , 02/06/25) Home Meds Reported Medications Aspirin (Aspir-81) 81 Mg Tab, 1 TAB PO DAILY, #30 TAB 5 Refills 02/06/25 Clopidogrel Bisulfate (Plavix) 75 Mg Tab, 1 TAB PO DAILY, #90 TAB 1 Refill 02/06/25 Atorvastatin Calcium (Lipitor) 40 Mg Tab, 1 TAB PO DAILY, #30 TAB 5 Refills 02/06/25 Empagliflozin (Jardiance) 25 Mg Tab, 25 MG PO, TAB 02/06/25 Metoprolol Succinate (Metoprolol Succinate Er) 50 Mg Tab, 1 TAB PO DAILY, #30 TAB 5 Refills 02/06/25 Metformin Hydrochloride (Metformin Hcl) 500 Mg Tab, 1 TAB PO BID, #60 TAB 3 Refills 02/06/25 Sacubitril-Valsartan (Entresto 24-26 mg) 1 Tab Tab, 1 TAB PO, TAB 02/06/25 Spironolactone (Spironolactone) 25 Mg Tab, 1 TAB PO DAILY, #90 TAB 1 Refill 02/06/25 Semaglutide (Ozempic) 2 Mg/3 Ml Inj, 0.5 MG SC, INJ 02/06/25 Amlodipine Besylate (Amlodipine Besylate) 10 Mg Tab, 1 TAB PO DAILY, #30 TAB 5 Refills 02/06/25 Famotidine (PEPCID TABLET) 20 Mg Tb, 1 TAB PO BID, #60 TAB 5 Refills 02/06/25 Insulin Glargine (Lantus Solostar) 100 Unit/Ml Inj, 100 UNIT SC, INJ 02/06/25 Current Medications Current Medications Medications (Trade) Dose Ordered Sig/Scarlet Route PRN Reason Start Time Stop Time Status Last Admin Ondansetron HCl (Zofran) 4 mg Q4HP PRN IV NAUSEA / VOMITING 02/06/25 19:45 Enoxaparin Sodium (Lovenox) 30 mg DAILY SC 02/07/25 10:00 02/07/25 09:43 Acetaminophen (Tylenol Tablet) 650 mg Q6HP PRN PO PAIN SCALE 1-3 OR TEMP>100.4 02/06/25 19:45 Nitroglycerin (Ntrostat Sublingual) 0.4 mg Q5MINP PRN SL FOR CHEST PAIN 02/06/25 19:45 Morphine Sulfate 2 mg Q30M PRN IV FOR CHEST PAIN 02/06/25 19:45 Albuterol (Ventolin Medneb) 2.5 mg Q6HPRN PRN NEB SHORTNESS OF BREATH 02/06/25 19:45 Empaglifozin (Jardiance) 10 mg DAILY PO 02/07/25 10:00 02/07/25 09:41 Sacubitril/ Valsartan (Entresto 24-26 Mg tab) 1 tab BID PO 02/07/25 10:00 02/07/25 09:40 Metoprolol Succinate (Toprol Xl) 25 mg DAILY PO 02/07/25 10:00 02/07/25 10:50 DC 02/07/25 09:41 Clopidogrel Bisulfate (Plavix) 75 mg DAILY PO 02/07/25 10:00 02/07/25 09:41 Diagnostic Test (Pha) (Accu-Chek Comfort Curve T) 1 strip ACHS 02/07/25 07:00 02/07/25 11:39 Insulin Human Regular (InsuLIN R) ACHS SC 02/07/25 07:00 02/07/25 11:51 Dextrose 50 ml UD PRN IV Blood Sugar LESS THAN 60 02/07/25 04:45 Furosemide (Lasix Injection) 20 mg DAILY IV 02/07/25 10:00 02/07/25 09:42 Atorvastatin Calcium (Lipitor) 10 mg HS PO 02/07/25 22:00 02/07/25 10:50 DC Atorvastatin Calcium (Lipitor) 40 mg HS PO 02/07/25 22:00 Metoprolol Succinate (Toprol Xl) 50 mg DAILY PO 02/08/25 10:00 Aspirin 81 mg DAILY PO 02/08/25 10:00 Spironolactone (Aldactone) 25 mg DAILY PO 02/08/25 10:00 Review of Systems Constitutional: No symptom reported Ears, Nose, & Throat: No symptom reported Eyes: No symptom reported Neurological: No symptoms reported Pulmonary/Respiratory: SOB, RAMIREZ, nonproductive cough Cardiovascular: No symptom reported Gastrointestinal: No symptom reported Genitourinary: No symptom reported Musculoskeletal: No symptom reported Skin: No symptom reported Psychiatric: No symptom reported Endocrine: No symptom reported Hemotologic/Lymphatic: No symptom reported Vital Signs Vital Signs Date Time Temp Pulse Resp B/P (MAP) Pulse Ox O2 Delivery O2 Flow Rate FiO2 02/07/25 13:00 97.9 79 17 167/80 (109) 94 97.9 02/07/25 06:43 Nasal Cannula* 3 32 Physical Exam GENERAL: Alert and oriented x 3. No acute distress. EYES: PERRL, EOMI. Anicteric. HENT: Moist mucous membranes. LUNGS: Clear to auscultation bilaterally. CARDIOVASCULAR: Regular rate and rhythm. ABDOMEN: Soft, nontender and nondistended. EXTREMITIES: No edema. NEUROLOGIC: No focal neurological deficits. SKIN: Warm, dry. Labs/Diagnostic Data Labs Test 02/07/25 11:32 02/07/25 05:22 02/06/25 20:10 02/06/25 15:39 Range/Units POC Glucose 158 H 70-106 mg/dl Sodium Level 143 136-145 mmol/L Potassium Level 4.5 3.5-5.1 mmol/L Chloride Level 109 H 98-107 mmol/L Carbon Dioxide Level 25 20-31 mmol/L Anion Gap 9 5-15 Blood Urea Nitrogen 19 9-23 mg/dL Creatinine 1.36 H 0.550-1.02 mg/dL Glomerular Filtration Rate Calc 40 >90 mL/min BUN/Creatinine Ratio 14.0 10.0-20.0 Serum Glucose 141 H 74-106 mg/dL Calcium Level 8.7 8.7-10.4 mg/dL Triglycerides Level 143 < 150 mg/dL Cholesterol Level 116 < 200 mg/dL LDL Cholesterol 60 < 100 mg/dL HDL Cholesterol 35 L 40-59 mg/dL Thyroid Stimulating Hormone (TSH) 1.85 0.55-4.78 uIU/mL Urine Color Colorless Yellow Urine Clarity Turbid H Clear Urine pH 5.5 5.0-9.0 Urine Specific [place] 1.007 1.001-1.035 Urine Protein 1+ H Negative Urine Ketones Negative Negative Urine Blood Negative Negative /uL Urine Nitrite Negative Negative Urine Bilirubin Negative Negative Urine Urobilinogen Normal Negative mg/dL Urine Leukocyte Esterase Trace Negative /uL Urine RBC 2 0 - 4 /hpf Urine Microscopic WBC 28 H 0-5 /HPF Urine Squamous Epithelial Cells Few <5 /hpf Urine Bacteria Few H None Seen /hpf Urine Glucose Normal Normal mg/dL Troponin I High Sensitivity 5 </=34 ng/L Test 02/06/25 14:09 Range/Units White Blood Count 8.2 4.4-10.8 10^3/uL Red Blood Count 3.57 L 4.0-5.20 10^6/uL Hemoglobin 9.4 L 12.2-16.2 g/dL Hematocrit 29.8 L 36.0-46.0 % Mean Corpuscular Volume 83.5 80.0-100.0 fL Mean Corpuscular Hemoglobin 26.4 L 28.0-32.0 pg Mean Corpuscular Hemoglobin Concent 31.6 L 32.0-36.0 g/dL Red Cell Distribution Width 17.9 H 11.8-14.3 % Platelet Count 395 140-450 10^3/uL Mean Platelet Volume 6.9 6.9-10.8 fL Neutrophils (%) (Auto) 67.5 37.0-80.0 % Lymphocytes (%) (Auto) 20.4 10.0-50.0 % Monocytes (%) (Auto) 7.6 0.0-12.0 % Eosinophils (%) (Auto) 3.4 0.0-7.0 % Basophils (%) (Auto) 1.1 0.0-2.0 % Neutrophils # (Auto) 5.6 1.6-8.6 10 ^3/uL Lymphocytes # (Auto) 1.7 0.4-5.4 10 ^3/uL Monocytes # (Auto) 0.6 0-1.3 10 ^3/uL Eosinophils # (Auto) 0.3 0-0.8 10 ^3/uL Basophils # (Auto) 0.1 0-0.2 10 ^3/uL Nucleated Red Blood Cells 0.1 % Total Bilirubin 0.6 0.2-1.0 mg/dL Aspartate Amino Transferase (AST) 21 13-40 U/L Alanine Aminotransferase (ALT) 18 7-40 U/L Alkaline Phosphatase 140 H 46-116 U/L B-Type Natriuretic Peptide 442.26 0-100 pg/mL Total Protein 7.6 5.7-8.2 g/dL Albumin 4.0 3.2-4.8 g/dL Assessment Acute on chronic decompensated HFpEF, NYHA Class III. Severe peripheral arterial disease s/p multiple PTAs (on A SA/Plavix/Atorvastatin). Hypertension. Dyslipidemia. Insulin-dependent diabetes mellitus. Chronic kidney disease stage 3. Obesity. Plan/Recommendation I agree with your ongoing assessment and care of plan. Patient has been seen by Domenica Jacobsen NP on my behalf, her and I discussed the plan with the patient. Transthoracic echocardiogram pending. 12 lead electrocardiogram, normal sinus rhythm. Serial troponin levels, negative. BNP level 400s. We will continue further cardiac evaluation with a transthoracic echocardiogram to rule out structural heart disease. In the meantime, continue preload and afterload reduction, strict I&Os, daily weight, fluid restriction, and 2 g sodium diet. Continue home medications which include GDMT for CHF. Initiate dual-antiplatelet therapy and lipid lowering agent given severe PAD. DVT/VTE prophylaxis. Further orders per clinical course. Additional plan as per the hospital course. Plan discussed with: Patient NYHA Physical activity limitations: Class3(Marked) ordinary Date of Service: Feb 07, 2025 Billing Provider: BEENA CRUZ MD Cardiology Common Codes: [id number] INP/OBS CARE (High) Cardiology Consultation Codes: [id number] CONSULT <45MIN BEENA CRUZ MD Feb 07, 2025 14:12
[2025-02-08] VITALS (10 sets, daily range): BP systolic 104–123; BP diastolic 62–71; PULSE 75–82; RESP 16–18; TEMP 97.4–98.9; O2SAT 93–98
--- NOTE | 2025-02-08 05:50 | DVH ---
CHEST RADIOGRAPH Indication: chf Technique: 1 view Comparison: XY CHEST PORTABLE on DOS: 02/06/25 FINDINGS: Lines and Tubes: External leads. Lungs/Pleura: Unchanged. Cardiomediastinum: Unchanged. Other: Unchanged. IMPRESSION: No significant change from 2 days prior. Interstitial opacities and cardiomegaly compatible with hea rt failure. Probable small pleural effusions.
[2025-02-08 06:35] LABS: Hematocrit 32.7 % (36.0-46.0); Hemoglobin 10.7 g/dL (12.2-16.2); Mean Corpuscular Hemoglobin 27.0 pg (28.0-32.0); Mean Corpuscular Volume 82.3 fL (80.0-100.0); Nucleated Red Blood Cells % 0.1 %
[2025-02-08 06:42] LABS: Anion Gap 11 (5-15); Calcium 8.8 mg/dL (8.7-10.4); Carbon Dioxide 28 mmol/L (20-31); Chloride 104 mmol/L (98-107); Potassium 4.3 mmol/L (3.5-5.1); Sodium 143 mmol/L (136-145)
[2025-02-08 06:48] LABS: BUN/Creatinine Ratio 15.7 (10.0-20.0)
[2025-02-08 06:52] LABS: Blood Urea Nitrogen 24 mg/dL (9-23); Glucose 145 mg/dL (74-106)
--- NOTE | 2025-02-08 09:42 | DVHPN2 ---
Consult Progress Note Date Seen: Feb 08, 2025 Subjective Review of Systems: CVS:Normal, RESPIRATORY:Normal, NEURO:Normal Objective vital signs Vital Sign Date Time Temp Pulse Resp B/P (MAP) Pulse Ox O2 Delivery O2 Flow Rate FiO2 02/08/25 05:00 97.6 78 17 114/70 (85) 98 97.6 02/07/25 22:45 Nasal Cannula* 3 32 Total Intake and Output 02/07/25 02/07/25 02/08/25 15:00 23:00 07:00 Intake Total 550 ml 900 ml Balance 550 ml 900 ml medications Current Medications Medications Dose Ordered Sig/Scarlet Route Start Time Stop Time Status Last Admin Dose Admin Ondansetron HCl 4 mg Q4HP PRN IV 02/06/25 19:45 Enoxaparin Sodium 30 mg DAILY SC 02/07/25 10:00 02/07/25 09:43 30 MG Acetaminophen 650 mg Q6HP PRN PO 02/06/25 19:45 Nitroglycerin 0.4 mg Q5MINP PRN SL 02/06/25 19:45 Morphine Sulfate 2 mg Q30M PRN IV 02/06/25 19:45 Albuterol 2.5 mg Q6HPRN PRN NEB 02/06/25 19:45 Sacubitril/ Valsartan 1 tab BID PO 02/07/25 10:00 02/07/25 21:41 1 TAB Clopidogrel Bisulfate 75 mg DAILY PO 02/07/25 10:00 02/07/25 09:41 75 MG Diagnostic Test (Pha) 1 strip ACHS 02/07/25 07:00 02/08/25 06:03 1 STRIP Insulin Human Regular ACHS SC 02/07/25 07:00 02/08/25 06:02 2 UNITS Dextrose 50 ml UD PRN IV 02/07/25 04:45 Furosemide 20 mg DAILY IV 02/07/25 10:00 02/07/25 09:42 20 MG Atorvastatin Calcium 40 mg HS PO 02/07/25 22:00 02/07/25 21:41 40 MG Metoprolol Succinate 50 mg DAILY PO 02/08/25 10:00 Aspirin 81 mg DAILY PO 02/08/25 10:00 Examination: LUNGS:Abnormal (+crackles), CVS:Normal, NEURO:Normal laboratory and microbiology Laboratory Tests 10/29/25 05:31 Test 02/08/25 05:31 Range/Units Serum Glucose 145 H 74-106 mg/dL Problem List/Assessment/Plan Problem List/Assessment/Plan Acute on chronic decompensated HFpEF, NYHA Class III Severe peripheral arterial disease s/p multiple PTAs (on ASA/Plavix/Atorvastatin) Pulmonary hypertension, moderate degree Aortic valve stenosis, mild degree Hypertension Dyslipidemia Insulin-dependent diabetes mellitus Chronic kidney disease stage 3 Obesity Plan/Recommendation (Dr. Cardozo) * Transthoracic echocardiogram revealed LVEF 60% with HIEU at 1.72 cm2, moderately dilated RV, and RVSP at 51 mmHg * 12 lead electrocardiogram, normal sinus rhythm * Serial troponin levels, negative * BNP level 400s Plan: States feeling better with no further cardiac complains. Continue preload and afterload reduction, strict I&Os, daily weight, fluid restriction, and 2 g sodium diet. Continue GDMT for CHF as renal function permits, currently with MIREYA for which mineralocorticoid and SGLT2i are held. Continue dual- antiplatelet therapy and lipid lowering agent given severe PAD. DVT/VTE prophylaxis. Continue outpatient follow-up with Lugger Dr. Miller and Vascular specialist Dr. Junior. Further orders per clinical course. Thank you for allowing us to participate in this patient's care. Please call if you have any questions or concerns. This medical document was created using an electronic medical record system with voice recognition software and computerized dictation system. Although this document has been carefully reviewed, there might still be some phonetic and typographical errors. Occasional wrong-word or ``sound-alike substitutions may have occurred due to the inherent limitations of voice recognition software. These areas are purely typographical due to imperfections of the software programs and do not reflect any compromise in the patient's medical care. Please read the chart carefully and recognize, using context, where these substitutions have occurred. Plan discussed with: Patient, Other Date of Service: Feb 08, 2025 Billing Provider: DELONTE HUTCHINSON Cardiology Common Codes: [id number] HOSP CARE([facility] DELONTE HUTCHINSON Feb 08, 2025 09:41
[2025-02-08] MEDS ORDERED: SPIRONOLACTONE 25 MG TAB PO SCH (10:00)
[2025-02-08] MEDS: METOPROLOL SUCCINATE XL 50 MG TAB PO SCH (10:11)
--- NOTE | 2025-02-08 11:40 | DVHPN2 ---
Progress Note Date Seen: Feb 08, 2025 Medical Necessity Reason Pt with a Central, PICC or Fol: No Subjective Patient reports: No new complaints Review of Systems: HEENT:Normal, CVS:Normal, RESPIRATORY:Normal, GI:Normal, :Normal, MSK:Normal, NEURO:Normal Objective vital signs Vital Sign Date Time Temp Pulse Resp B/P (MAP) Pulse Ox O2 Delivery O2 Flow Rate FiO2 02/08/25 10:12 115/62 02/08/25 10:11 80 02/08/25 09:35 98 Nasal Cannula 3.0 02/08/25 09:35 32 02/08/25 05:00 97.6 17 97.6 Total Intake and Output 02/07/25 02/07/25 02/08/25 15:00 23:00 07:00 Intake Total 550 ml 900 ml Balance 550 ml 900 ml medications Current Medications Medications Dose Ordered Sig/Scarlet Route Start Time Stop Time Status Last Admin Dose Admin Ondansetron HCl 4 mg Q4HP PRN IV 02/06/25 19:45 Enoxaparin Sodium 30 mg DAILY SC 02/07/25 10:00 02/08/25 10:10 30 MG Acetaminophen 650 mg Q6HP PRN PO 02/06/25 19:45 Nitroglycerin 0.4 mg Q5MINP PRN SL 02/06/25 19:45 Morphine Sulfate 2 mg Q30M PRN IV 02/06/25 19:45 Albuterol 2.5 mg Q6HPRN PRN NEB 02/06/25 19:45 Sacubitril/ Valsartan 1 tab BID PO 02/07/25 10:00 02/08/25 10:10 1 TAB Clopidogrel Bisulfate 75 mg DAILY PO 02/07/25 10:00 02/08/25 10:11 75 MG Diagnostic Test (Pha) 1 strip ACHS 02/07/25 07:00 02/08/25 06:03 1 STRIP Insulin Human Regular ACHS SC 02/07/25 07:00 02/08/25 06:02 2 UNITS Dextrose 50 ml UD PRN IV 02/07/25 04:45 Furosemide 20 mg DAILY IV 02/07/25 10:00 02/08/25 10:12 20 MG Atorvastatin Calcium 40 mg HS PO 02/07/25 22:00 02/07/25 21:41 40 MG Metoprolol Succinate 50 mg DAILY PO 02/08/25 10:00 02/08/25 10:11 50 MG Aspirin 81 mg DAILY PO 02/08/25 10:00 02/08/25 10:12 81 MG Examination: GENERAL:Normal, HEENT:Normal, NECK:Normal, LUNGS:Normal, CVS:Normal, ABDOMEN:Normal, MSK:Normal, SKIN:Normal, NEURO:Normal, :Normal laboratory and microbiology Laboratory Tests 02/08/25 05:31 Test 02/08/25 05:31 Range/Units Serum Glucose 145 H 74-106 mg/dL Problem List/Assessment/Plan Problem List/Assessment/Plan #1 acute resp failure: cont oxygen #2 acute on chronic systolic/diastolic heart failure: lasix iv #3 dm: ssi #4 htn #5 pvd s/p angioplasty #6 ckd stage 3 advance care planning- full code- time spent 18 mins Plan discussed with: Patient My Orders My Orders Orders - RACHELLE COHEN MD Procedure Category Date Status Time Pt Request For Service PT 02/07/25 Logged 12:17 Chest Portable XY 02/08/25 Resulted 06:00 Kidney US 02/07/25 Resulted 12:19 Furosemide Injection PHA 02/08/25 Verified (Lasix Injection) 11:45 Date of Service: Feb 08, 2025 Billing Provider: RACHELLE COHEN MD Common Visit Codes: [id number] INP/OBS CARE(HIGH) RACHELLE COHEN MD Feb 08, 2025 11:40
[2025-02-08] MEDS: FUROSEMIDE 20 MG/2 ML VIAL IV ONE (12:12)
--- NOTE | 2025-02-08 23:38 | DVHPN2 ---
Consult Progress Note Date Seen: Feb 08, 2025 Subjective Review of Systems: CVS:Normal, RESPIRATORY:Normal, NEURO:Normal Other Systems: Patient was seen and evaluated in follow up. No overnight events. Patient states feeling better with no further cardiac complains. BUN 24, MANAGER CANCER 1.53, GLUC 209. Telemetry reviewed. Objective vital signs Vital Sign Date Time Temp Pulse Resp B/P (MAP) Pulse Ox O2 Delivery O2 Flow Rate FiO2 02/08/25 12:12 133/77 02/08/25 10:11 80 02/08/25 09:35 98 Nasal Cannula 3.0 02/08/25 09:35 32 02/08/25 05:00 97.6 17 97.6 Total Intake and Output 02/07/25 02/07/25 02/08/25 15:00 23:00 07:00 Intake Total 550 ml 900 ml Balance 550 ml 900 ml medications Current Medications Medications Dose Ordered Sig/Scarlet Route Start Time Stop Time Status Last Admin Dose Admin Ondansetron HCl 4 mg Q4HP PRN IV 02/06/25 19:45 Enoxaparin Sodium 30 mg DAILY SC 02/07/25 10:00 02/08/25 10:10 30 MG Acetaminophen 650 mg Q6HP PRN PO 02/06/25 19:45 Nitroglycerin 0.4 mg Q5MINP PRN SL 02/06/25 19:45 Morphine Sulfate 2 mg Q30M PRN IV 02/06/25 19:45 Albuterol 2.5 mg Q6HPRN PRN NEB 02/06/25 19:45 Sacubitril/ Valsartan 1 tab BID PO 02/07/25 10:00 02/08/25 10:10 1 TAB Clopidogrel Bisulfate 75 mg DAILY PO 02/07/25 10:00 02/08/25 10:11 75 MG Diagnostic Test (Pha) 1 strip ACHS 02/07/25 07:00 02/08/25 11:30 1 STRIP Insulin Human Regular ACHS SC 02/07/25 07:00 02/08/25 12:18 4 UNITS Dextrose 50 ml UD PRN IV 02/07/25 04:45 Furosemide 20 mg DAILY IV 02/07/25 10:00 02/08/25 10:12 20 MG Atorvastatin Calcium 40 mg HS PO 02/07/25 22:00 02/07/25 21:41 40 MG Metoprolol Succinate 50 mg DAILY PO 02/08/25 10:00 02/08/25 10:11 50 MG Aspirin 81 mg DAILY PO 02/08/25 10:00 02/08/25 10:12 81 MG Examination: GENERAL:Normal, HEENT:Normal, NECK:Normal, LUNGS:Abnormal (+crackles), CVS:Normal, ABDOMEN:Normal, MSK:Normal, NEURO:Normal laboratory and microbiology Laboratory Tests 02/08/25 05:31 Test 02/08/25 05:31 Range/Units Serum Glucose 145 H 74-106 mg/dL Problem List/Assessment/Plan Problem List/Assessment/Plan Problem list Acute on chronic decompensated HFpEF, NYHA Class III. Severe peripheral arterial disease s/p multiple PTAs (on ASA/Plavix/Atorvastatin). Pulmonary hypertension, moderate degree. Aortic valve stenosis, mild degree. Hypertension. Dyslipidemia. Insulin-dependent diabetes mellitus. Chronic kidney disease stage 3. Obesity. Plan/Recommendation Continued all current supportive medical care. Patient has been seen by Domenica Jacobsen NP on my behalf, her and I discussed the plan with the patient. Transthoracic echocardiogram revealed LVEF 60% with HIEU at 1.72 cm2, moderately dilated RV, and RVSP at 51 mmHg. 12 lead electrocardiogram, normal sinus rhythm. Serial troponin levels, negative. BNP level 400s. States feeling better with no further cardiac complains. Continue preload and afterload reduction, strict I&Os, daily weight, fluid restriction, and 2 g sodium diet. Continue GDMT for CHF as renal function permits, currently with MIREYA for which mineralocorticoid and SGLT2i are held. Continue dual-antiplatelet therapy and lipid lowering agent given severe PAD. DVT/VTE prophylaxis. Continue outpatient follow-up with [facility] Dr. Miller and Vascular specialist Dr. Junior. Additional plan as per the hospital course. Plan discussed with: Patient Date of Service: Feb 08, 2025 Billing Provider: BEENA CRUZ MD Cardiology Common Codes: [id number] [facility](High BEENA CRUZ MD Feb 08, 2025 12:59
[2025-02-09] VITALS (7 sets, daily range): BP systolic 115–134; BP diastolic 70–74; PULSE 78–82; RESP 16–18; TEMP 78–98; O2SAT 94–99
[2025-02-09] MEDS ORDERED: FURO1TAB31 PO (11:15)
--- NOTE | 2025-02-09 11:33 | DVHDS ---
HISTORY OF PRESENT ILLNESS: The patient is a 75-year-old lady who is admitted with a history of increasing shortness of breath and has a history of diabetes, hypertension, hyperlipidemia, and congestive heart failure. HOSPITAL COURSE: The patient had an echocardiogram done that showed ejection fraction of 60% with moderately dilated RV and moderate pulmonary hypertension. The patient had a chest x-ray that showed evidence of congestive heart failure. The patient had a kidney ultrasound that showed no hydronephrosis. The patient's creatinine was at about 1.3-1.5. The patient has since improved in the symptoms. She will be discharged home to resume her home medications as well as to be on Lasix 40 mg daily. She will follow up with her primary and management nurse rn in 1 week. FINAL DIAGNOSES: * Acute respiratory failure. * [id number] diastolic heart failure. * Diabetes mellitus. * Hypertension. * CKD stage 3. * History of peripheral vascular disease with previous angioplasty. Time spent in discharge planning, review of plan with the patient and nursing was 39 minutes. MD MONICO Bolanos/BRIGHT TID: [id number] RECEIPT: [id number]
--- NOTE | 2025-02-10 11:08 | DVHDS2 ---
Discharge Summary Date of Admission Feb 06, 2025 at 19:43 Date of Discharge: Feb 09, 2025 Labs/Diagnostic Data: Laboratory Results Test 02/09/25 05:57 02/08/25 05:31 02/07/25 05:22 02/06/25 20:10 POC Glucose 198 mg/dl (70-106) White Blood Count 8.6 10^3/uL (4.4-10.8) Red Blood Count 3.97 10^6/uL (4.0-5.20) Hemoglobin 10.7 g/dL (12.2-16.2) Hematocrit 32.7 % (36.0-46.0) Mean Corpuscular Volume 82.3 fL (80.0-100.0) Mean Corpuscular Hemoglobin 27.0 pg (28.0-32.0) Mean Corpuscular Hemoglobin Concent 32.8 g/dL (32.0-36.0) Red Cell Distribution Width 17.1 % (11.8-14.3) Platelet Count 411 10^3/uL (140-450) Mean Platelet Volume 6.8 fL (6.9-10.8) Neutrophils (%) (Auto) 69.0 % (37.0-80.0) Lymphocytes (%) (Auto) 16.2 % (10.0-50.0) Monocytes (%) (Auto) 9.2 % (0.0-12.0) Eosinophils (%) (Auto) 4.9 % (0.0-7.0) Basophils (%) (Auto) 0.7 % (0.0-2.0) Neutrophils # (Auto) 5.9 10 ^3/uL (1.6-8.6) Lymphocytes # (Auto) 1.4 10 ^3/uL (0.4-5.4) Monocytes # (Auto) 0.8 10 ^3/uL (0-1.3) Eosinophils # (Auto) 0.4 10 ^3/uL (0-0.8) Basophils # (Auto) 0.1 10 ^3/uL (0-0.2) Nucleated Red Blood Cells 0.1 % Sodium Level 143 mmol/L (136-145) Potassium Level 4.3 mmol/L (3.5-5.1) Chloride Level 104 mmol/L (98-107) Carbon Dioxide Level 28 mmol/L (20-31) Anion Gap 11 (5-15) Blood Urea Nitrogen 24 mg/dL (9-23) Creatinine 1.53 mg/dL (0.550-1.02) Glomerular Filtration Rate Calc 35 mL/min (>90) BUN/Creatinine Ratio 15.7 (10.0-20.0) Serum Glucose 145 mg/dL (74-106) Hemoglobin A1c 9.3 % A1C (<5.7) Calcium Level 8.8 mg/dL (8.7-10.4) Triglycerides Level 143 mg/dL (< 150) Cholesterol Level 116 mg/dL (< 200) LDL Cholesterol 60 mg/dL (< 100) HDL Cholesterol 35 mg/dL (40-59) Thyroid Stimulating Hormone (TSH) 1.85 uIU/mL (0.55-4.78) Urine Color Colorless (Yellow) Urine Clarity Turbid (Clear) Urine pH 5.5 (5.0-9.0) Urine Specific [place] 1.007 (1.001-1.035) Urine Protein 1+ (Negative) Urine Ketones Negative (Negative) Urine Blood Negative /uL (Negative) Urine Nitrite Negative (Negative) Urine Bilirubin Negative (Negative) Urine Urobilinogen Normal mg/dL (Negative) Urine Leukocyte Esterase Trace /uL (Negative) Urine RBC 2 /hpf (0 - 4) Urine Microscopic WBC 28 /HPF (0-5) Urine Squamous Epithelial Cells Few /hpf (<5) Urine Bacteria Few /hpf (None Seen) Urine Glucose Normal mg/dL (Normal) Test 02/06/25 15:39 02/06/25 14:09 Troponin I High Sensitivity 5 ng/L (</=34) Total Bilirubin 0.6 mg/dL (0.2-1.0) Aspartate Amino Transferase (AST) 21 U/L (13-40) Alanine Aminotransferase (ALT) 18 U/L (7-40) Alkaline Phosphatase 140 U/L (46-116) B-Type Natriuretic Peptide 442.26 pg/mL (0-100) Total Protein 7.6 g/dL (5.7-8.2) Albumin 4.0 g/dL (3.2-4.8) Other Laboratory Tests 02/08/25 05:31 Brief Hx & Hospital Course: see dictated note Condition at Discharge: Fair Final Diagnosis/Problems List chf Discharge Disposition: Home Discharge Instruct/Medications Diet: Cardiac 2g Na,low cholest Activity: No Restrictions, As Tolerated Follow Up/Referral: [facility] pcp[facility]cardiology in 1 wk Medications: resume home meds script to pharmacy Scheduled Amlodipine Besylate (Amlodipine Besylate), 1 TAB PO DAILY, (Reported) Aspirin (Aspir-81), 1 TAB PO DAILY, (Reported) Atorvastatin Calcium (Lipitor), 1 TAB PO DAILY, (Reported) Clopidogrel Bisulfate (Plavix), 1 TAB PO DAILY, (Reported) Famotidine (Pepcid Tablet), 1 TAB PO BID, (Reported) Furosemide (Lasix), 40 MG PO QAM Metformin Hydrochloride (Metformin Hcl), 1 TAB PO BID, (Reported) Metoprolol Succinate (Metoprolol Succinate Er), 1 TAB PO DAILY, (Reported) Spironolactone (Spironolactone), 1 TAB PO DAILY, (Reported) Miscellaneous Medications Empagliflozin (Jardiance), 25 MG PO, (Reported) Insulin Glargine (Lantus Solostar), 100 UNIT SC, (Reported) Sacubitril-Valsartan (Entresto 24-26 mg), 1 TAB PO, (Reported) Semaglutide (Ozempic), 0.5 MG SC, (Reported) Discharge Statement: "Patient was advised to return to the ER or call 911 if any headaches, dizziness, shortness of breath, chest pain, abdominal pain, bleeding, fevers, or worsening of medical condition. Patient was counseled about treatment plan, medications, possible side effects, patientverbalized understanding. All questions were answered to the best of my ability. This discharge took greater then 30 minutes in planning, reviewing documentation, counseling the patient, and discussing with other team members." ASSESSMENT ASSESSMENT Assessment chf Date of Service: Feb 09, 2025 Billing Provider: RACHELLE COHEN MD Common Visit Codes: [id number] DISCH DAY >30min RACHELLE COHEN MD Feb 09, 2025 11:16
--- NOTE | 2025-02-10 11:30 | DVHPN2 ---
Progress Note - Dictate Date Seen: Feb 09, 2025 Medical Necessity Reason Pt with a Central, PICC or Fol: No Subjective Patient was seen and evaluated in follow up. Patient has no new complaints at this time. Patient denies any cardiac symptoms. Patient is cardiac stable for discharge. Telemetry reviewed. vital signs Vital Sign Date Time Temp Pulse Resp B/P (MAP) Pulse Ox O2 Delivery O2 Flow Rate FiO2 02/09/25 11:59 97.5 82 18 99 02/09/25 10:03 126/74 02/09/25 08:00 Room Air* 0 99 21 Total Intake and Output 02/08/25 02/08/25 02/09/25 15:00 23:00 07:00 Intake Total 500 ml 800 ml Balance 500 ml 800 ml medications Current Medications Medications Dose Ordered Sig/Scarlet Route Start Time Stop Time Status Last Admin Dose Admin Ondansetron HCl 4 mg Q4HP PRN IV 02/06/25 19:45 Enoxaparin Sodium 30 mg DAILY SC 02/07/25 10:00 02/09/25 10:04 30 MG Acetaminophen 650 mg Q6HP PRN PO 02/06/25 19:45 Nitroglycerin 0.4 mg Q5MINP PRN SL 02/06/25 19:45 Morphine Sulfate 2 mg Q30M PRN IV 02/06/25 19:45 Albuterol 2.5 mg Q6HPRN PRN NEB 02/06/25 19:45 Sacubitril/ Valsartan 1 tab BID PO 02/07/25 10:00 02/09/25 10:03 1 TAB Clopidogrel Bisulfate 75 mg DAILY PO 02/07/25 10:00 02/09/25 10:03 75 MG Diagnostic Test (Pha) 1 strip ACHS 02/07/25 07:00 02/09/25 06:10 1 STRIP Insulin Human Regular ACHS SC 02/07/25 07:00 02/09/25 06:12 3 UNITS Dextrose 50 ml UD PRN IV 02/07/25 04:45 Furosemide 20 mg DAILY IV 02/07/25 10:00 02/09/25 10:03 20 MG Atorvastatin Calcium 40 mg HS PO 02/07/25 22:00 02/08/25 21:12 40 MG Metoprolol Succinate 50 mg DAILY PO 02/08/25 10:00 02/09/25 10:03 50 MG Aspirin 81 mg DAILY PO 02/08/25 10:00 02/09/25 10:02 81 MG objective GENERAL: Alert and oriented x 3. No acute distress. EYES: PERRL, EOMI. Anicteric. HENT: Moist mucous membranes. LUNGS: Clear to auscultation bilaterally. CARDIOVASCULAR: Regular rate and rhythm. ABDOMEN: Soft, nontender and nondistended. EXTREMITIES: No edema. NEUROLOGIC: No focal neurological deficits. SKIN: Warm, dry. laboratory and microbiology Laboratory Tests 02/08/25 05:31 Test 02/08/25 05:31 Range/Units Serum Glucose 145 H 74-106 mg/dL Problem List Acute on chronic decompensated HFpEF, NYHA Class III. Severe peripheral arterial disease s/p multiple PTAs (on ASA/Plavix/Atorvastatin). Pulmonary hypertension, moderate degree. Aortic valve stenosis, mild degree. Hypertension. Dyslipidemia. Insulin-dependent diabetes mellitus. Chronic kidney disease stage 3. Obesity. Assessment/Plan Continued all current supportive medical care. Aspirin, Plavix, Metoprolol. Diuretics with Lasix. Entresto. DVT prophylactics. Nitro SL. Morphine for pain management. Additional plan as per the hospital course. Plan discussed with: Patient BEENA CRUZ MD Feb 09, 2025 12:33
== END 2025-02-09 12:50 | disposition home or self-care (01) | DRG 291 ==
LOC: ER 13:21 → OVERFLOW 19:43 → TELE-WESTW 21:18
PROVIDERS: ADMIT Internal Medicine; ATTEND Internal Medicine
DX: I13.0 Hypertensive heart and chronic kidney disease with heart failure and stage 1 through stage 4 chronic kidney disease, or unspecified chronic kidney disease (principal); I50.33 Acute on chronic diastolic (congestive) heart failure; J96.00 Acute respiratory failure, unspecified whether with hypoxia or hypercapnia; I27.20 Pulmonary hypertension, unspecified; N17.9 Acute kidney failure, unspecified; I16.0 Hypertensive urgency; N18.30 Chronic kidney disease, stage 3 unspecified; E66.9 Obesity, unspecified; E11.22 Type 2 diabetes mellitus with diabetic chronic kidney disease; I35.0 Nonrheumatic aortic (valve) stenosis; E78.5 Hyperlipidemia, unspecified; E11.51 Type 2 diabetes mellitus with diabetic peripheral angiopathy without gangrene; Z79.899 Other long term (current) drug therapy; Z90.49 Acquired absence of other specified parts of digestive tract; Z79.84 Long term (current) use of oral hypoglycemic drugs; Z79.82 Long term (current) use of aspirin; Z79.4 Long term (current) use of insulin; Z68.29 Body mass index [BMI] 29.0-29.9, adult
CPT/HCPCS: 36415; 71045; 76775; 80048; 80053; 80061; 81001; 82962; 83036; 83880; 84443; 84484; 85025; 93005; 93306; 96374; 96375; 97110; 97116; 97163; 97530; 99291; 99292; G0378; J1815